=== PATIENT | female | born 1995 | race Hispanic/Latino ===

== ENCOUNTER → 2019-06-10 | Outpatient (REF) | payer OTHER ==
[2019-06-10 17:48] LABS: HEMATOCRIT 43.1 % (36.0-47.0); MEAN CORPUSCULAR HEMOGLOBIN 30.4 pg (27.0-33.0); MEAN CORPUSCULAR HGB CONC 34.8 g/dl (32.0-36.5); MEAN CORPUSCULAR VOLUME 87.2 fl (80.0-96.0); PLATELET COUNT, AUTOMATED 236 10^3/uL (150-450); RED BLOOD COUNT 4.94 10^6/uL (4.00-5.40); WHITE BLOOD COUNT 4.4 10^3/uL (4.0-10.0)
[2019-06-10 18:41] LABS: HCG, SERUM QUANTITATIVE 97231 MIU/ML
[2019-06-11 08:47] LABS: RUBELLA IgG QUALITATIVE IMMUNE (IMMUNE)
[2019-06-11 09:17] LABS: HEPATITIS C VIRUS ABY INDEX 0.1 INDEX (<0.8)
[2019-06-11 09:18] LABS: HIV 1&2 SCREEN CENTAUR NEGATIVE (NEGATIVE)
== END ==
LOC: M LAB REF 16:34
PROVIDERS: ATTEND Obstetrics & Gynecology
DX: O36.80X0 Pregnancy with inconclusive fetal viability, not applicable or unspecified (principal); Z3A.00 Weeks of gestation of pregnancy not specified

== ENCOUNTER → 2019-09-08 | Outpatient (CLI) | payer OTHER ==
--- NOTE | 2019-09-08 19:49 | REP ---
Clinical: Anatomical evaluation. Comparison: None . Findings: Examination demonstrates a single live intrauterine in cephalic presentation. motion is identified by technologist. Placenta is noted posterior and grade zero without evidence for placenta previa or abruption. Amniotic fluid volume is normal. Cervix measures 3.9 cm in length and appears closed. No evidence for nuchal cord. Gestational age by LMP 21 weeks 4 days with DORIAN 01/15/2020 . Gestational age by current measurements 21 weeks 6 days with DORIAN 01/13/2020 . FHR equals 139 beats per minute. BPD 5.2 cm 21 weeks 5 days HC 19.3 cm 21 weeks 4 days AC 17.0 cm 22 weeks 0 days FL 3.8 cm 22 weeks 0 days HL 3.5 cm of 22 weeks 0 days HC/AC ratio 1.13 Estimated weight 461 grams ( 56 percentile). Anatomical assessment demonstrates normal structures including cranium, choroid plexus, cavum, cerebellum/posterior fossa, lungs, four-chamber heart, diaphragm, stomach, cord insertion/three-vessel cord, kidneys/bladder, spine, and extremities. Impression: 1. Single live intrauterine in cephalic presentation demonstrating appropriate interval growth. 2. Limited evaluation of the facial features and cardiac ventricular outflow tracts. Remainder of the anatomical assessment is complete and normal. Electronically Signed by Taras Rodrigues MD 09/08/2019 07:41 P
== END ==
LOC: M RAD 09:43
PROVIDERS: ATTEND Obstetrics & Gynecology
DX: Z34.80 Encounter for supervision of other normal pregnancy, unspecified trimester (principal); Z3A.21 21 weeks gestation of pregnancy

== ENCOUNTER → 2019-09-17 | Outpatient (CLI) | payer OTHER ==
--- NOTE | 2019-09-18 02:19 | REP ---
Clinical: Anatomical evaluation. Comparison: 09/08/2019 . Findings: Examination demonstrates a single live intrauterine in cephalic presentation. motion is identified by technologist. Placenta is noted posterior and grade I without evidence for placenta previa or abruption. Amniotic fluid volume is normal. Cervix measures 3.0 cm in length and appears closed. No evidence for nuchal cord. Gestational age by LMP 22 weeks 6 days with DORIAN 01/15/2020 . Gestational age by current measurements 22 weeks 2 days with DORIAN 01/19/2020 . FHR equals 146 beats per minute. Estimated weight 584 grams ( 59th percentile). Anatomical assessment demonstrates normal structures including facial features, and four-chamber heart/ventricular outflow tracts. Impression: Single live intrauterine in cephalic presentation demonstrating appropriate interval growth. In conjunction with prior examination anatomical assessment is complete and normal.
== END ==
LOC: M WHC 13:26
PROVIDERS: ATTEND Advanced Practice Midwife
DX: Z34.92 Encounter for supervision of normal pregnancy, unspecified, second trimester (principal)

== ENCOUNTER → 2019-10-09 | Outpatient (CLI) | payer OTHER ==
[2019-10-09 17:48] LABS: HEMATOCRIT 40.9 % (36.0-47.0); HEMOGLOBIN 13.3 g/dl (12.0-15.5); MEAN CORPUSCULAR HEMOGLOBIN 29.6 pg (27.0-33.0); MEAN CORPUSCULAR HGB CONC 32.5 g/dl (32.0-36.5); MEAN CORPUSCULAR VOLUME 91.1 fl (80.0-96.0); PLATELET COUNT, AUTOMATED 230 10^3/uL (150-450); RED BLOOD COUNT 4.49 10^6/uL (4.00-5.40); WHITE BLOOD COUNT 6.7 10^3/uL (4.0-10.0)
== END ==
LOC: M PLALAB 13:33
PROVIDERS: ATTEND Advanced Practice Midwife
DX: Z34.92 Encounter for supervision of normal pregnancy, unspecified, second trimester (principal)

== ENCOUNTER → 2019-12-17 | Outpatient (REF) | payer OTHER | LOC: M SFHCWAGY 17:02 | PROVIDERS: ATTEND Specialist | DX: Z34.80 Encounter for supervision of other normal pregnancy, unspecified trimester (principal) ==

== ENCOUNTER → 2020-01-01 | Outpatient (REF) | payer OTHER ==
[~2020-01-01] MED LIST: ASPI81CH33 PO; MULTTAB20 PO
== END ==
LOC: M PLALAB 10:37
PROVIDERS: ATTEND Nurse Practitioner Women's Health
DX: Z3A.37 37 weeks gestation of pregnancy (principal)
CPT/HCPCS: 36415; 87389; G0463

== ENCOUNTER → 2020-01-08 | Outpatient (CLI) | payer OTHER ==
[~2020-01-08] VITALS: Ht 160 cm; Wt 67.8 kg
--- NOTE | 2020-01-09 06:39 | IPN ---
DATE: 01/08/2020 24-year-old, G2, P1 female, 39 and 0/7 weeks gestation, presents with contractions. She experiences lower back pain and lower pelvic cramping intermittently for the last several hours. She also has decreased movement over the same time period. There is some movement, just not as consistent as usual. OBJECTIVE: Blood pressure 134/84, pulse 84. She is in no apparent distress. Head/neck exam: Normal. Abdomen: Nontender. Gravid. heart tones category 1. Contractions every 3-7 minutes, mild. Sterile vaginal exam: 1 cm, 50%, -2, posterior, moderate vertex. Extremities: Nontender. ASSESSMENT: 24-year-old, G2, P1 at 39 and 0/7 weeks gestation with contractions but not in labor. testing reassuring. PLAN: Patient can be discharged home. Labor precautions given. She has an appointment in the office on 01/09/2020.
== END ==
LOC: M LDO 21:03
PROVIDERS: ATTEND Specialist
DX: O36.8130 Decreased fetal movements, third trimester, not applicable or unspecified (principal); O26.893 Other specified pregnancy related conditions, third trimester; M54.5 Low back pain; R10.30 Lower abdominal pain, unspecified; O47.1 False labor at or after 37 completed weeks of gestation; Z3A.39 39 weeks gestation of pregnancy

== ENCOUNTER 2020-01-14 00:11 | Inpatient (IN) | payer OTHER ==
[~2020-01-14] VITALS: Ht 160 cm; Wt 70.9 kg
[2020-01-14] VITALS (52 sets, daily range): BP systolic 120–180; BP diastolic 73–107
[2020-01-14] MEDS ORDERED: MULTTAB20 PO (00:32)
[2020-01-14] MEDS ORDERED: ASPI81CH33 PO (00:32)
[2020-01-14 01:58] LABS: HEMATOCRIT 39.3 % (36.0-47.0); HEMOGLOBIN 13.7 g/dl (12.0-15.5); MEAN CORPUSCULAR HEMOGLOBIN 30.3 pg (27.0-33.0); MEAN CORPUSCULAR HGB CONC 34.9 g/dl (32.0-36.5); MEAN CORPUSCULAR VOLUME 86.9 fl (80.0-96.0); PLATELET COUNT, AUTOMATED 159 10^3/uL (150-450); RED BLOOD COUNT 4.52 10^6/uL (4.00-5.40); WHITE BLOOD COUNT 8.8 10^3/uL (4.0-10.0)
[2020-01-14 02:23] LABS: ALT/SGPT 31 U/L (12-78); BILIRUBIN,TOTAL 0.3 MG/DL (0.2-1.0); GLOMERULAR FILTRATION RATE > 60.0 (>60); LDH LACTATE DEHYDROGENASE 199 U/L (84-246); URIC ACID 4.6 MG/DL (2.6-6.0)
[2020-01-14] MEDS ORDERED: FENTANYL 2MCG/ML ROPIVACAINE 0.2% IN 0.9% NACL 100ML IVBAG As Ordered ONE (05:48)
[2020-01-14] MEDS ORDERED: NALOXONE INJ 0.4MG/1ML VIAL (J2310 PER 1MG) IV PRN (05:56)
[2020-01-14] MEDS ORDERED: ePHEDrine SULFATE 25 MG/5 ML(5MG/ML) SYRINGE IV PRN (05:56)
[2020-01-14] MEDS ORDERED: diphenhydrAMINE 50MG/ML VIAL (J1200) IV PRN (05:56)
[2020-01-14] MEDS ORDERED: EPIDURAL COMMENT XX SCH (05:56)
[2020-01-14] MEDS ORDERED: LACTATED RINGER'S 1000 ML IV PRN (05:56)
[2020-01-14] MEDS ORDERED: EPIDURAL/PCA KEYS XX PRN (05:56)
[2020-01-14] MEDS ORDERED: ONDANSETRON 4MG/2ML VIAL IV PRN (05:56)
[2020-01-14] MEDS ORDERED: REFRIGERATOR IV KEYS XX PRN (05:56)
[2020-01-14] MEDS ORDERED: FENTANYL/ROPIVACAINE/NACL BAG 100 ML EPIDURAL SCH (05:56)
[2020-01-14] MEDS ORDERED: LACTATED RINGER'S 1000 ML IV STA (06:15)
[2020-01-14] MEDS ORDERED: LR 1,000 ML IV SCH (06:15)
[2020-01-14 06:41] LABS: CREATININE,RANDOM URINE 29.6 MG/DL
[2020-01-14] MEDS ORDERED: OXYTOCIN 30 UNITS IN 0.9% NaCl 500ML IV BAG (J2590) As Ordered ONE (07:51)
[2020-01-14] MEDS ORDERED: OXYTOCIN DRIP 30 UNITS in IV 1 EA IV SCH (08:31)
--- NOTE | 2020-01-14 08:44 | DNPDOC ---
[facility] Delivery Note Delivery Note DATE OF DELIVERY: PREDELIVERY DIAGNOSIS: 39+6 weeks gestation, Labor POSTDELIVERY DIAGNOSIS: Delivered PROCEDURE: Spontaneous vaginal delivery PROVIDER: Cassie Major DO PGY-3 RECORD PRESS SUPERVISOR: Cari Mcginnis CNM ANESTHESIA: Epidural ESTIMATED BLOOD LOSS: 200 mL. FINDINGS: Male infant weighing 6 pounds 6 ounces or 2880 grams, scores 9 and 9. DELIVERY SUMMARY: After a short second stage, the patient spontaneously delivered a 6 pound 6 ounce male infant, weighing 2880 grams, under epidural anesthesia at 0805 hours. The delivered left occiput anterior, restituted left occiput transverse, and there was no nuchal noted. The shoulders delivered with ease, followed by the corpus. The infant cried spontaneously and was handed to the mother. scores were 9 and 9. The cord was doubly clamped and cut by the father of the baby. The placenta was delivered spontaneously via Collins mechanism at 0813 hours and appeared to be intact. The patient received IV pitocin immediately after delivery of the placenta. Patient had a small left labial abrasion that was repaired with 3-0 Rapide in the usual fashion. Sponge, needle, and instrument counts were correct. The parents have named their baby "Avila." GME ATTESTATION GME ATTESTATION My faculty preceptor for this patient encounter was physically present during the encounter and was fully available. All aspects of the patient interview, examination, medical decision making process, and medical care plan development were reviewed and approved by the faculty preceptor. The faculty preceptor is aware and concurs with the plan as stated in the body of this note and will attest to such by his/her cosignature. CASSIE OLIVA D.O. January 14, 2020 08:44
[2020-01-14] MEDS ORDERED: IBUPROFEN 600 MG TAB PO PRN (08:45)
[2020-01-14] MEDS ORDERED: METHYLERGONOVINE MALEATE 0.2 MG TAB PO PRN (08:45)
[2020-01-14] MEDS ORDERED: IBUPROFEN 800 MG TAB PO PRN (08:45)
[2020-01-14] MEDS ORDERED: ACETAMINOPHEN TAB 650MG DOSE (2X325MG) PO PRN (08:45)
[2020-01-14] MEDS ORDERED: RHOGAM 300 MCG (1500 IU) INJ (J2790) IM SCH (08:45)
[2020-01-14] MEDS ORDERED: DIBUCAINE 1% OINTMENT 30GM TOP PRN (08:45)
[2020-01-14] MEDS ORDERED: MEASLES,MUMPS,RUBELLA VACCINE INJ (MMR-II) (90707) SC SCH (08:45)
[2020-01-14] MEDS ORDERED: DOCUSATE SODIUM 100 MG CAP PO PRN (08:45)
[2020-01-14] MEDS: PRENATAL VITAMINS CHEWABLE TABLET PO SCH (09:00)
[2020-01-14] MEDS ORDERED: SLF 3 ML SYR IV PRN (09:00)
[2020-01-14] MEDS: ACETAMINOPHEN 500 MG TAB PO PRN (17:46)
[2020-01-14] MEDS: LABETALOL 100 MG TAB PO SCH (18:08)
[2020-01-14] MEDS ORDERED: LABETALOL 100MG/20ML VIAL IV STA (18:31)
[2020-01-14] MEDS: SLF 3 ML SYR IV SCH (21:52)
[2020-01-15 02:00] VITALS: BP 129/83
[2020-01-15] MEDS: ACETAMINOPHEN 500 MG TAB PO PRN (02:33)
[2020-01-15] MEDS: SLF 3 ML SYR IV SCH (05:56)
[2020-01-15 06:00] VITALS: BP 138/84
[2020-01-15 10:11] VITALS: BP 132/83
[2020-01-15] MEDS: PRENATAL VITAMINS CHEWABLE TABLET PO SCH (10:11)
[2020-01-15] MEDS: LABETALOL 100 MG TAB PO SCH (10:11)
== END 2020-01-15 11:30 | disposition home or self-care (01) | DRG 807 ==
LOC: M LDO 00:11 → M LDI 00:50 → M OBS 10:37
PROVIDERS: ADMIT Obstetrics & Gynecology; ATTEND Advanced Practice Midwife
PROC: 10E0XZZ Delivery of Products of Conception, External Approach (ICD-10-PCS; principal; 2020-01-14)
PROC: 0HQ9XZZ Repair Perineum Skin, External Approach (ICD-10-PCS; 2020-01-14)
DX: O70.0 First degree perineal laceration during delivery (principal); Z37.0 Single live birth; Z3A.39 39 weeks gestation of pregnancy